=== PATIENT | male | born 1990 | race Caucasian/White ===

== ENCOUNTER 2017-08-31 10:54 | Day surgery (SDC) | payer BC, SELFPAY ==
[2017-08-31] VITALS (7 sets, daily range): BP systolic 124–145; BP diastolic 69–88; PULSE 65–77; RESP 16–18; TEMP 36.4–36.9; O2SAT 93–99; BMI 30.2
[2017-08-31] MEDS: Cefazolin 2 GM in Syringe IV (12:47)
--- NOTE | 2017-08-31 13:00 | LES_PTH ---
PATIENT: JOSEFINA BARTLETT LOC: [facility] – [place] U#:[id number] AGE/SX: 27/M ROOM: RE08/31/[address]: Dr. Abdiel Woodward MD : 1990 BED: DIS: 08/31/2017 SPEC #: [id number] RECD: 08/31/17 14:46 STATUS: COOKIE GARY #: [id number] NEW: 08/31/17 13:[address]: Abdiel Woodward DEPT: SURGICAL PATHOLOGY RECD BY: Dariusz Ortega ENTERED: 08/31/17 14:53 SP TYPE: Lesion OTHR DR: Dr. Miguel Medeiros MD Tissues: A - Skin of forearm, NOS B - Skin of back, NOS C - Skin of leg, NOS D - Skin of back, NOS E - Skin of back, NOS Procedures: Surgery Specimen Level IV HEADER OPERATION: Excision, subcutaneous mass, right forearm, left lower back x2, right lower back PRE-OP DIAGNOSIS: Mass right forearm; two masses left lower back; mass right lower back; mass left posterior thigh TISSUE SUBMITTED: A ? Subcutaneous mass right forearm, B - Subcutaneous mass right lower back, C - Subcutaneous mass left posterior thigh, D - Subcutaneous mass left posterior/medial back, E - Subcutaneous mass left lateral posterior back MICROSCOPIC DIAGNOSIS A. Subcutaneous mass, right forearm, excision: Angiolipoma. B. Subcutaneous mass, right lower back, excision: Fibrolipoma. C. Subcutaneous mass, left posterior thigh, excision: Angiolipoma. D. Subcutaneous mass, left posterior back, medial, excision: Angiolipoma. E. Subcutaneous mass, left lateral posterior back, excision: Angiolipoma. SJ:caitlyn 09/01/17 MICROSCOPIC DESCRIPTION Slides are reviewed. GROSS DESCRIPTION A - Received in fixative is one container labeled with the patient's name and designated subcutaneous mass right forearm. The specimen consists of an irregular fragment of yellow fatty tissue measuring 4 x 3 x 1 cm. Serial sectioning reveal homogenous yellow cut surfaces without areas of cyst formation, necrosis or hemorrhage. Cigar Packer And Shader sections are submitted in two cassettes. B - Received in fixative is one container labeled with the patient's name and designated subcutaneous mass right lower back. The specimen consists of a piece of yellow adipose tissue measuring 1.5 x 1 x 0.5 cm. The specimen is bisected and totally submitted in one cassette. C - Received in fixative is one container labeled with the patient's name and designated subcutaneous mass left posterior thigh. The specimen consists of a discoid fragment of yellow fatty tissue measuring 1.5 x 1.3 x 0.3 cm. The specimen is totally submitted in one cassette. D - Received in fixative is one container labeled with the patient's name and designated subcutaneous mass left posterior back, medial. The specimen consists of a discoid fragment of yellow fatty tissue measuring 2.2 x 1 x 0.7 cm. The specimen is bisected and totally submitted in one cassette. E - Received in fixative is one container labeled with the patient's name and designated subcutaneous mass left lateral posterior back. The specimen consists of a discoid fragment of yellow fatty tissue measuring 1.5 x 1 x 0.9 cm. The specimen is bisected and totally submitted in one cassette. / AM:caitlyn 08/31/17 TC:1 CPT: 55394 x5
[2017-08-31] MEDS: Bupivacaine 0.25% 30 ML Vial (13:30)
--- NOTE | 2017-08-31 13:52 | OP.PCM_ITS ---
Problem List (1) Mass of subcutaneous tissue of back Status: Acute Report of Operation Date of Procedure: 08/31/17 Pre-Operative Diagnosis: 1. Subcutaneous mass of back ?3,. 2. Subcutaneous mass of right forearm. 3. Subcutaneous mass of left lateral thigh Post-Operative Diagnosis: Same Surgery/Procedure Performed:: 1. Excisional biopsy of right forearm mass. 2. Excisional biopsy of right flank mass. 3. Excisional biopsy of left lower back mass ?2. 4. Excisional biopsy of left posterior thigh mass Specimen's removed: 1. Right forearm mass. 2. Right flank/lower back mass. 3. Left lateral lower back mass. 4. Left medial lower back mass. 5. Left posterior thigh mass Description of Procedure: The patient was brought back to the operating room and general anesthesia was induced. The patient was then placed in the prone position. The patient's right forearm and right flank were prepped and draped in usual sterile fashion. Next Marcaine was injected under the skin. An incision was made in the forearm and deepened to the subcutaneous fatty mass which was dissected free and excised with electrocautery. The cavity was then irrigated and closed with an interrupted 3-0 Vicryl suture and running 4-0 Monocryl suture. Steri-Strips and bandages were then applied. Attention was then paid to the right flank mass. It was removed in the same fashion and closed in the same fashion. The left lower back was then prepped and draped in usual sterile fashion. These areas were injected with Marcaine. An incision was made over the lateral back mass and deepened to the mass using electrocautery. The mass was dissected free using electrocautery. Electrocautery was used to obtain hemostasis in the cavity and it was irrigated out. Next the mass was closed with a interrupted 3-0 Vicryl suture and a running 4-0 Monocryl suture as well as Steri-Strips and bandage. The left lower back medial mass was removed in the same fashion. Attention was then paid to the left posterior thigh mass. This was prepped and draped in usual sterile fashion. Marcaine anesthesia was used to inject the area. An incision was made and then it was deepened to the mass with electrocautery. The mass was dissected free and removed and hemostasis was obtained with electrocautery. The cavity was irrigated and closed with an interrupted 3-0 Vicryl suture in a running 4-0 Monocryl suture as well as Steri- Strips and bandage. The patient was then awoken and taken to PACU in stable condition. The patient tolerated the procedure well.
--- NOTE | 2017-08-31 13:54 | PCM.DC.GS ---
Discharge Diet: Light diet - advance as tolerated Discharge Activity: May Not Drive - No driving for 1 week or while taking narcotic pain meds. May shower in (days): 1 Call your doctor if your incision/area has: Continuous Slow Oozing, Sudden Increased Bleeding, Increased Pain/ Swelling, Increased Redness, Foul Smelling Discharge, Swelling at the incision site Call your doctor if you observe: Fever of 101 or Higher Suture Line Care: Avoid Pulling/Pushing, Avoid Pinching/Bending Change Dressing in (Days):: 2 - Leave steri-strips in place for 1 week. Allergies/Adverse Reactions: Allergies Sulfa (Sulfonamide Antibiotics) Allergy (Verified 08/24/17 08:50) Rash Medications to take at Discharge Oxycodone HCl/Acetaminophen [Percocet 5/325] 1 - 2 tablet PO Q4H PRN PRN #10 tablet 08/31/17 The following prescriptions were given: Oxycodone HCl/Acetaminophen [Percocet 5/325] 1 - 2 tablet PO Q4H PRN PRN #10 tablet PRN Reason: Pain Primary Care Physician: Miguel Medeiros [Primary Care Provider] - Please Follow Up With: Abdiel Woodward MD When: call tomorrow to make 2 week follow up appt [phone]
[2017-08-31] MEDS: DiphenhydrAMINE 50 MG/ML Syringe 25 MG IV (16:00)
[2017-08-31] MEDS: Metoclopramide 10 MG/2 ML Vial IV (16:00)
[2017-08-31] MEDS: Ketorolac 30 MG/ML Syringe IV (16:00)
== END 2017-08-31 17:35 | disposition home or self-care (01) ==
LOC: SDC 10:56 → AC 10:57
PROVIDERS: Family Provider Family Medicine; PCP Family Medicine; Visit Provider Surgery
PROC: (CPT 11402; principal; 2017-08-31 12:45)
DX: D17.21 Benign lipomatous neoplasm of skin and subcutaneous tissue of right arm (principal); D17.1 Benign lipomatous neoplasm of skin and subcutaneous tissue of trunk; D17.24 Benign lipomatous neoplasm of skin and subcutaneous tissue of left leg
CPT/HCPCS: 00300; 11402 ×3; 11403; 11404; 88305; J7120; J2405

== ENCOUNTER 2018-02-20 18:56 | Emergency (ER) | payer BC, SELFPAY ==
[2018-02-20 18:57] VITALS: BP 150/94; PULSE 101; RESP 24; TEMP 36.6; O2SAT 97; BMI 32.1
--- NOTE | 2018-02-20 21:23 | ED.DCSUM_ITS ---
- ER Visit Summary Date of Service: 02/20/18 Chief Complaint: Right shoulder laceration History of Present Illness: The patient is a 27 M [place] with right shoulder laceration he got caught into a piece of metal. Physical Examination: 3 cm laceration dorsum of the shoulder full range of motion of the shoulder Test Results: [] Emergency Department Course and Treatment: Patient was sutured with 4-0 nylon sutures tolerated procedure well tetanus administered. Treatment Plan: [] Disposition: Discharge stable Impression: Right shoulder lacerations 3 cm This note was generated with [employer] dictation software. It may contain incorrect words, spelling, and punctuation that were not noted in review of the chart prior to signing ED Disposition - Plan for ED Patient: Disposition: Home or Assisted Living Chief Complaint: Laceration Instructions: ED Laceration All Referrals: Miguel Medeiros [Primary Care Provider] - 10 Day for suture removal
[2018-02-20 21:26] VITALS: BP 161/76; PULSE 74; RESP 16; O2SAT 99
[2018-02-20] MEDS: Diphth,Pertuss(Acell),Tet Vac 0.5 ML Vial IM (21:43)
[2018-02-20 22:10] VITALS: PULSE 78; RESP 16; O2SAT 98
== END 2018-02-20 22:11 | disposition home or self-care (01) ==
LOC: ED 21:51
PROVIDERS: Emergency Provider Emergency Medicine; Family Provider Family Medicine; PCP Family Medicine
DX: S41.011A Laceration without foreign body of right shoulder, initial encounter (principal); W45.8XXA Other foreign body or object entering through skin, initial encounter; Y93.9 Activity, unspecified; Y92.9 Unspecified place or not applicable; Y99.9 Unspecified external cause status; Z23 Encounter for immunization
CPT/HCPCS: 12002; 90715; 99283

== ENCOUNTER 2020-07-05 17:46 | Emergency (ER) | payer BC, SELFPAY ==
[2020-07-05 17:47] VITALS: BP 127/63; PULSE 104; RESP 20; TEMP 36.8; O2SAT 96; BMI 30.7
--- NOTE | 2020-07-05 18:30 | EKG12_ITS ---
Test Reason : DYSRYTHMIA Blood Pressure : / mmHG Vent. Rate : 085 BPM Atrial Rate : 085 BPM P-R Int : 142 ms QRS Dur : 090 ms QT Int : 334 ms P-R-T Axes : 006 074 -16 degrees QTc Int : 397 ms Normal sinus rhythm Cannot rule out Inferior infarct , age undetermined Abnormal ECG Confirmed by SUSHANT OLSON, SORAYA ([id number]), story editor DILIA ESPARZA ([id number]) on 07/07/2020 2:26:26 PM Referred By: ROSA Confirmed By:SORAYA CANCHOLA MD
--- NOTE | 2020-07-05 18:45 | ED.VIS.FLU ---
History of Present Illness Chief Complaint: General Illness Informant: Patient Known exposure: No Onset: Days Context: Gradual Onset Timing: Continuous Worsened by: Coughing Relieved by: Nothing Associated Symptoms: Fever, Sore throat Chest Pain: None Narrative: Patient is a 30-year-old male without any significant past medical history presenting with 1 day of fever, headache, shortness of breath and nausea/vomiting. He also states he has had malaise for the past couple days. He denies any sick contacts. He states his and 1-year-old child at home are asymptomatic. Patient had Tylenol around noon today. He states he feels like he is going to pass out. He denies any associated neck pain. He denies any rash. States he is hands and feet feel numb. He denies any weakness however. He states he gets a bad febrile illness about once a year which tends to be strep. Denies any associated vision changes. He denies any loss of sense of smell or taste. He denies any change in his bowel habits. He denies any other complaints at this time. On repeat evaluation patient states he is actually been feeling unwell for about a week but is been controlling symptoms with Tylenol. His symptoms are just not been as severe until today. He notes that his 1-year-old at home did have runny nose and was tested for Covid a couple days ago but this was negative. Patient was sent home from work a week ago is not been back since because of his symptoms. Past Medical History - Allergies and Home Meds Allergies/Adverse Reactions: Allergies Sulfa (Sulfonamide Antibiotics) Allergy (Verified 02/20/18 18:58) Rash Primary Care Physician: Miguel Medeiros MD [Primary Care Provider] - Past Medical History: None Surgical History: no surgical history Lives: Spouse/ Significant Other Smoking Status: Never smoker Review of Systems General: Reports: Chills, Fever, Malaise. Denies: Sweats ENT: Reports: Sore throat. Denies: Bilateral ear pain, Rhinorrhea Cardiovascular: Denies: Chest pain, Palpitations Respiratory: Reports: Cough. Denies: Dyspnea, Sputum, Dyspnea on exertion Gastrointestinal: Reports: Nausea, Vomiting. Denies: Abdominal pain, Diarrhea, Melena, Hematochezia Genitourinary: Denies: Dysuria, Hematuria, Frequency Musculoskeletal: Reports: Myalgias, Neck pain Skin: Denies: Rash Neurological: Reports: Headache, Parasthesia - Hands and feet. Denies: Weakness, Numbness Physical Exam Vital Signs/Narrative: Vital Signs Temp Pulse Resp BP Pulse Ox 07/05/20 17:47 98.2 F 104 H 20 H 127/63 H 96 Inital Vital Signs reviewed: Yes General: Well nourished, Well developed, - - Febrile appearing Head: Normocephalic, Atraumatic Eyes: Perrl, EOMI ENT: Moist mucous membranes, TM's clear, - - No significant erythema or edema of the tonsils. Negative for: Rhinorrhea Neck: Supple, Nontender, - - No pain with neck flexion or extension. Negative for: No lymphadenopathy Cardiovascular: Regular rhythm, No murmurs, Tachycardia Respiratory: No distress, CTA bilaterally, No Stridor. Negative for: Wheezing, Diminished Abdomen: Soft, Nontender, Nondistended, Normal bowel sounds. Negative for: Guarding, Rebound tenderness Back: Nontender, Normal Inspection. Negative for: CVA tenderness Extremities: Nontender, No edema Skin: Normal color, No rash Neurological: Alert, Oriented x3, Cranial nerves II-XII grossly intact, Normal Strength, Normal Sensation - Sensation intact to light touch of all extremities, - - Normal reflexes in patellar tendon bilaterally. No clonus of the ankles laterally. Normal Babinski bilaterally. 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 Negative for: Weakness Psychological: Normal affect Diagnostic/Tx/Re-eval Chest X-Ray - ED: 1 View, Read by ED Physician, Read by Radiologist, No Acute Disease Clinical Impression(s) from Imaging Studies Chest X-Ray 07/05/20 19:04 IMPRESSION: Normal x-ray examination of the chest. Electronically Signed: Ronal Pinon DO at 19:20 EST Tel , Service support , Laboratory Data 07/05/20 07/05/20 07/05/20 18:40 18:40 18:40 WBC 7.0 RBC 4.77 Hgb 14.1 Hct 42.2 MCV 88.5 MCH 29.6 MCHC 33.4 RDW Std Deviation 38.3 RDW Coeff of Shar 11.9 Plt Count 183 MPV 10.3 Immature Gran % (Auto) 0.400 Neut % (Auto) 49.3 Lymph % (Auto) 38.5 [place] % (Auto) 7.2 Eos % (Auto) 3.6 Baso % (Auto) 1.0 Absolute Neuts (auto) 3.5 Absolute Lymphs (auto) 2.69 Nucleated RBC % 0 PT 13.7 INR 1.1 Sodium 139 Potassium 3.6 Chloride 106 Carbon Dioxide 26.0 Anion Gap 7 BUN 19 H Creatinine 1.12 Estim Creat Clear Calc 105.85 Est GFR (MDRD) Af Amer 99 Est GFR (MDRD) Non-Af 82 BUN/Creatinine Ratio 17.0 Glucose 89 Lactic Acid Calcium 9.0 Total Bilirubin 0.60 AST 183 H ALT 258 H Alkaline Phosphatase 115 Troponin I < 0.015 Total Protein 7.8 Albumin 4.0 Globulin 3.8 Albumin/Globulin Ratio 1.1 Lipase 59 L Urine Color Urine Clarity Urine pH Ur Specific [place] Urine Protein Urine Glucose (UA) Urine Ketones Urine Occult Blood Urine Nitrite Urine Bilirubin Urine Urobilinogen Ur Leukocyte Esterase Urine RBC Urine WBC Ur Squamous Epith Cells Urine Bacteria Urine Mucus Monoscreen 07/05/20 07/05/20 07/05/20 18:40 18:40 19:40 WBC RBC Hgb Hct MCV MCH MCHC RDW Std Deviation RDW Coeff of Shar Plt Count MPV Immature Gran % (Auto) Neut % (Auto) Lymph % (Auto) [place] % (Auto) Eos % (Auto) Baso % (Auto) Absolute Neuts (auto) Absolute Lymphs (auto) Nucleated RBC % PT INR Sodium Potassium Chloride Carbon Dioxide Anion Gap BUN Creatinine Estim Creat Clear Calc Est GFR (MDRD) Af Amer Est GFR (MDRD) Non-Af BUN/Creatinine Ratio Glucose Lactic Acid 0.8 Calcium Total Bilirubin AST ALT Alkaline Phosphatase Troponin I Total Protein Albumin Globulin Albumin/Globulin Ratio Lipase Urine Color Yellow Urine Clarity Sl. Cloudy Urine pH 5.0 Ur Specific [place] 1.020 Urine Protein Negative Urine Glucose (UA) Normal Urine Ketones 50 H Urine Occult Blood 10 H Urine Nitrite Negative Urine Bilirubin Negative Urine Urobilinogen Normal Ur Leukocyte Esterase Negative Urine RBC 0-5 SEEN Urine WBC 0 SEEN Ur Squamous Epith Cells 0-5 SEEN Urine Bacteria 0 SEEN Urine Mucus 0 SEEN Monoscreen Negative - Rhythm Strip Rhythm Strip: Sinus Rhythm Rate: 85 Ectopy: None - EKG Initial EKG Interpretation: Sinus Rhythm, - - Sinus rhythm at a rate of 85 Normal axis Normal intervals Nonspecific T wave inversion in lead IIIand AvF - Medical Decision Making Patient is evaluated for fever, chills, myalgias, shortness of breath, nausea and headache. He has had fever and generalized malaise for the past week but his symptoms have never been this severe as they are today. He feels lightheaded and feels like he might pass out. Patient is hemodynamically stable. He is mildly tachycardic and I suspect he is febrile despite low-grade temps in the ER. He is complaining of weakness of his legs and numbness or seizures of his hands and feet but has a normal neurologic exam. He is not having nuchal rigidity and has easy range of motion of his neck. I have a low suspicion for meningitis. Given the amount of symptoms he is having I did check blood work we will do chest x-ray and urine. CBC is normal. BMP CMP is remarkable for mild transaminitis. Patient states he does not drink alcohol in the past few weeks and I suspect it might be viral. I did add on a Monospot which is negative. Strep swab is negative. Urinalysis is consistent with some mild dehydration. Chest x-ray does not show any acute process. Patient has clear breath sounds and not hypoxic in the ER. He is initially treated with Toradol and IV fluids. He does have improvement of the symptoms but does complain to complain of a throbbing headache. On repeat evaluation he does not appear clinically much improved and continues to have a normal neurologic exam. He does not have any weakness and has normal reflexes of the lower extremities and have a low suspicion for Guillain-Jimenez? syndrome at this time. I do not think an LP is indicated at this time. Patient is not symptoms for a week with a normal neurologic exam. Patient will be treated with Reglan and Benadryl prior to discharge for headache control. Covid swab is pending. He is counseled on return precautions. He is encouraged to alternate Tylenol ibuprofen. He is discharged home with a course of Zofran. ED Disposition - Plan for ED Patient: Disposition: Home or Assisted Living Diagnosis: Viral syndrome, Suspected COVID-19 virus infection, Transaminitis Instructions: ED Viral Syndrome Prescriptions: Ondansetron [Zofran Odt] 4 mg PO Q8H PRN PRN #10 tab PRN Reason: Nausea Prescription Printed Referrals: Miguel Medeiros MD [Primary Care Provider] - Additional Instructions: I suspect you have Covid infection or another viral infection was causing your symptoms. You been tested today but will take a couple days for the results to come back. You do have some mild elevation of your liver enzymes which can be seen in viral infections. Your test for mono nucleus this was negative. Your strep test was negative. I think your body still needs time to let this run its course however please return to the emergency room if you have worsening symptoms, develop shortness of breath/trouble breathing or signs of dehydration. If you develop significant weakness of her lower legs or have a hard time walking please return to the emergency room. Alternate Tylenol and ibuprofen regularly at home for fever control.
[2020-07-05] MEDS: 0.9% Normal Saline 1,000 ML 1000 ML IV (18:46)
[2020-07-05] MEDS: Ondansetron 4 MG/2 ML Vial IV (18:46)
[2020-07-05] MEDS: Ketorolac 15 MG/ML Vial IV (18:46)
--- NOTE | 2020-07-05 19:04 | RAD_ITS ---
STUDY: X-RAY CHEST REASON FOR EXAM: Male, 30 years old. FEVER, LONGO, UNABLE TO FEEL FEET AND ARMS, COUGH, SOB TECHNIQUE: Single AP portable view of the chest. COMPARISON: None. FINDINGS: The lungs are clear and expanded. There is no demonstrated pleural abnormality. Normal size heart. Normal mediastinum and elvira. Normal visualized pulmonary arteries. Normal visualized aortic arch and descending thoracic aorta. Normal visualized thoracic spine. Normal visualized ribs, clavicles, and shoulders. There is no demonstrated abnormality of the visualized soft tissue structures of the upper abdomen. RAD/Chest 1 View (Portable) IMPRESSION: Normal x-ray examination of the chest. Electronically Signed: Ronal Pinon DO at 19:20 EST Tel , Service support ,
[2020-07-05 19:14] LABS: Absolute Lymphocyte Count 2.69 X10^3/uL (0.83-4.51); Absolute Neutrophil Count 3.5 X10^3/uL (2.0-7.7); Basophil# 0.07 X10^3/uL; Eosinophil# 0.25 X10^3/uL; Eosinophils% 3.6 % (0-5); Hematocrit 42.2 % (40-54); Hemoglobin 14.1 g/dL (13.0-16.5); International Normalized Ratio 1.1; Lymphocyte # 2.69 X10^3/ul (4.0); Lymphocyte % 38.5 % (19-41); Mean Corp Hgb Conc 33.4 g/dL (32-36); Mean Corpuscular Hgb 29.6 pg (27.0-32.0); Mean Corpuscular Volume 88.5 fL (80-94); Mean Platelet Vol. 10.3 fl (6.2-12.0); Monocyte% 7.2 % (0-10); NRBC Flagged by Analyzer 0 % (0-5); Neutrophil # 3.45 X10^3/uL (2.7-7.7); Neutrophil % 49.3 % (47-70); Platelet Count 183 K/mm3 (150-450); Prothrombin Time (Protime)PT. 13.7 SECONDS (11.7-14.9); RBC Distribution Width CV 11.9 % (11.6-14.6); RBC Distribution Width SD 38.3 fl (35.1-43.9); Red Blood Count 4.77 M/mm3 (4.6-6.2)
[2020-07-05 19:50] LABS: Lactic Acid 0.8 mmol/L (0.4-1.9)
[2020-07-05 19:53] LABS: ALB/GLOB Ratio 1.1 RATIO (0.9-2.4); AST(SGOT) 183 U/L (15-37); Alanine Aminotransfer ALT/SGPT 258 U/L (16-61); Alkaline Phosphatase 115 U/L (45-117); Anion Gap 7 (5-15); BUN 19 mg/dL (7-18); Chloride 106 mmol/L (98-107); Creatinine, Serum 1.12 mg/dL (0.70-1.30); EST Glomerular Filtration Rate 82 mL/min (>60); Est Glom Filt Rate - Afr Amer 99 mL/min (>60); Estimated Creatinine Clearance 105.85 ml/min; Globulin 3.8 g/dL (2.2-4.2); Glucose 89 mg/dL (74-106); Lipase 59 U/L (73-393); Potassium 3.6 mmol/L (3.5-5.1); Protein, Total 7.8 g/dL (6.4-8.2); Sodium Level 139 mmol/L (136-145)
[2020-07-05 19:53] LABS: Bacteria 0 SEEN /hpf (None Seen); Mucous, Urine 0 SEEN /hpf (<or=2+); White Blood Cells 0 SEEN /hpf (0-5)
[2020-07-05 20:08] VITALS: BP 132/77; PULSE 89; RESP 18; O2SAT 96
[2020-07-05 20:18] LABS: Color, Urine Yellow (Yellow); Glucose, Dipstick Normal (Normal); Ketone-Dipstick 50 mg/dl (Negative); Leukocyte Esterase-Dipstick Negative /ul (Negative); Nitrite-Dipstick Negative (Negative); Occult Blood-Urine 10 /ul (Negative); Protein-Dipstick Negative (Negative); Urine Bilirubin Dipstick Negative (Negative); Urine Clarity Sl. Cloudy (Clear); Urine Urobilinogen Normal (Normal)
[2020-07-05 20:20] VITALS: BP 123/82; BP 125/78; BP 133/70; PULSE 100; PULSE 83; PULSE 98
[2020-07-05 20:25] VITALS: BP 123/82; PULSE 88; RESP 18; TEMP 37.2; O2SAT 95
[2020-07-05 20:30] LABS: Internal QC Validated? YES +Cl - CLEAR BKGD; Monotest Negative (Negative)
[2020-07-05 20:31] LABS: Red Blood Cells-Urine 0-5 SEEN /hpf (0-5); Squamous Epithelial Cells - UA 0-5 SEEN /hpf (0-5)
[2020-07-05] MEDS: DiphenhydrAMINE 50 MG/ML Syringe 25 MG IV (21:38)
[2020-07-05] MEDS: Metoclopramide 10 MG/2 ML Vial 5 MG IV (21:38)
[2020-07-05 21:42] VITALS: BP 134/73; PULSE 71; RESP 24; O2SAT 98
== END 2020-07-05 21:58 | disposition home or self-care (01) ==
PROVIDERS: Emergency Provider Emergency Medicine; PCP Family Medicine
DX: B34.9 Viral infection, unspecified (principal); R74.01 Elevation of levels of liver transaminase levels; Z88.2 Allergy status to sulfonamides
CPT/HCPCS: 71045; 80053; 81001; 83605; 83690; 84484; 85025; 85610; 86308; 87635; 87880; 93005; 96361; 96374; 96375; 99285; J7030; A4216; J2405; U0003

== ENCOUNTER 2023-02-01 17:49 | Emergency (ER) | payer OTHER, SELFPAY ==
[2023-02-01 17:51] VITALS: BP 136/103; PULSE 108; RESP 18; TEMP 36.3; O2SAT 98; BMI 30.3
[2023-02-01 19:01] LABS: Absolute Neutrophil Count 8.4 X10^3/uL (2.0-7.7); Basophil# 0.08 X10^3/uL; Basophil% 0.6 % (0-1); Eosinophil# 0.14 X10^3/uL; Eosinophils% 1.1 % (0-5); Hemoglobin 16.4 g/dL (13.0-16.5); Lymphocyte % 27.5 % (19-41); Mean Corp Hgb Conc 34.2 g/dL (32-36); Mean Corpuscular Hgb 29.2 pg (27.0-32.0); Mean Corpuscular Volume 85.4 fL (80-94); Mean Platelet Vol. 9.9 fl (6.2-12.0); Monocyte# 0.77 X10^3/uL; Monocyte% 5.9 % (0-10); NRBC Flagged by Analyzer 0 % (0-5); Neutrophil # 8.42 X10^3/uL (2.7-7.7); Neutrophil % 64.4 % (47-70); Platelet Count 287 K/mm3 (150-450); RBC Distribution Width CV 12.1 % (11.6-14.6); RBC Distribution Width SD 37.8 fl (35.1-43.9); Red Blood Count 5.62 M/mm3 (4.6-6.2); White Blood Count 13.1 K/mm3 (4.4-11.0)
[2023-02-01 19:20] LABS: ALB/GLOB Ratio 0.9 RATIO (0.9-2.4); AST(SGOT) 17 U/L (15-37); Alanine Aminotransfer ALT/SGPT 30 U/L (16-61); Albumin, Serum 4.6 g/dL (3.2-5.0); Alkaline Phosphatase 90 U/L (45-117); Anion Gap 7 (5-15); BUN 14 mg/dL (7-18); BUN/Creat Ratio 12.1 RATIO (10-20); Chloride 100 mmol/L (98-107); Creatinine, Serum 1.16 mg/dL (0.70-1.30); EST Glomerular Filtration Rate 77 mL/min (>60); Est Glom Filt Rate - Afr Amer 93 mL/min (>60); Estimated Creatinine Clearance 100.34 ml/min; Globulin 4.9 g/dL (2.2-4.2); Glucose 104 mg/dL (74-106); Lipase 23 U/L (13-75); Potassium 4.2 mmol/L (3.5-5.1); Protein, Total 9.5 g/dL (6.4-8.2); Sodium Level 132 mmol/L (136-145)
[2023-02-01] MEDS: Ondansetron 4 MG/2 ML Vial IV (19:43)
[2023-02-01] MEDS: Mag Hydrox/Al Hydrox/Simeth 30 ML UDC PO (19:45)
[2023-02-01 19:52] LABS: Squamous Epithelial Cells - UA 0 SEEN /hpf (0-5)
[2023-02-01 19:53] LABS: Color, Urine Yellow (Yellow); Glucose, Dipstick Normal (Normal); Leukocyte Esterase-Dipstick Negative /ul (Negative); Nitrite-Dipstick Negative (Negative); Occult Blood-Urine 25 /ul (Negative); Protein-Dipstick 15 mg/dl (Negative); Urine Bilirubin Dipstick Negative (Negative); Urine Clarity Clear (Clear); Urine Urobilinogen Normal (Normal)
[2023-02-01 20:12] LABS: Ketone-Dipstick 150 mg/dl (Negative)
[2023-02-01 20:14] LABS: Bacteria RARE /hpf (None Seen); Mucous, Urine 1+ /hpf (<or=2+); Red Blood Cells-Urine 0-5 SEEN /hpf (0-5); White Blood Cells 0-5 SEEN /hpf (0-5)
--- NOTE | 2023-02-01 20:16 | EDS_ITS ---
HPI HPI - GI History of Present Illness Chief Complaint: Abd Pain Narrative Narrative: 32-year-old male presenting with nausea and vomiting. He states that his had at first. She developed abdominal pain and then diarrhea as well as nausea and vomiting. He states has been like this for couple of days where he had the epigastric pain and is not able to hold down food and fluids very well. He does state that now he is constipated and has not had a bowel movement in a day and a half or so. He did take a laxative yesterday but this did not help. He has not had a fever or chills. Denies any history of abdominal surgery. Denies urinary complaints. PFSH PFS Medical History Abnormal colonoscopy Home Medications ondansetron 4 mg disintegrating tablet 4 mg PO Q8H PRN PRN Nausea #10 tabs 07/05/20 [Rx Last Taken Unknown] famotidine 20 mg tablet (Pepcid AC) 20 mg PO BID PRN epigastric pain #14 tabs 02/01/23 [Rx Last Taken Unknown] ondansetron 4 mg disintegrating tablet 4 mg PO Q8H PRN PRN Nausea #14 tabs 02/01/23 [Rx Last Taken Unknown] Allergy/AdvReac Type Severity Reaction Status Date / Time Sulfa (Sulfonamide Allergy Rash Verified 02/01/23 17:52 Antibiotics) Family History Mother No problems noted. Surgical History History of surgery on arm Status post excision of lipoma Social History Smoking Status: Never smoker alcohol intake: current alcohol intake frequency: a few times a month EXAM Physical Exam Const Vital Signs: 02/01/23 17:51 02/01/23 22:37 Temperature 97.3 F L Temperature Source Temporal Pulse Rate 108 H 71 Respiratory Rate 18 16 Blood Pressure 136/103 H 137/91 H Blood Pressure Mean 114 106 Pulse Ox 98 100 Oxygen Delivery Method Room Air MDM MDM MDM Narrative Medical decision making narrative: Patient presenting epigastric pain he states been ongoing but also states that his had similar symptoms and she just self resolved. He continues to have epigastric pain. He is having nausea and vomiting as well. Physical exam remar kable for epigastric tenderness. Negative Becerril sign to have a low suspicion for cholelithiasis or acute cholecystitis. Differential diagnosis includes gastritis, pancreatitis, gastric ulcer, dehydration, electrolyte abnormalities, anemia, GI bleed. CBC obtained to assess white blood cell count, hemoglobin, platelets, differential. CMP to assess liver function, renal function, electrolytes. Lipase to assess for pancreatitis. Patient given Zofran and a GI cocktail. He continued to have pain and he was given a dose of morphine. At this point he was given a liter of normal saline. I reevaluated him and he was still having pain so at this point we determined we would get a CT scan of the abdomen pelvis which shows nonspecific findings consistent with a gastroenteritis. CBC shows a mild leukocytosis at 13.1. No left shift. Hemoglobin hematocrit stable. Platelets normal. Renal function electrolytes within normal limits. LFTs are normal. Lipase negative. Urinalysis shows 150 ketones. Doing better on reevaluation at 1150. I am going to provide him with a prescription for Pepcid and Zofran for home. He is to follow-up with his primary care physician and return precautions were discussed. Impression: 1. Nausea/vomiting 2. Abdominal pain 3. Diarrhea 4. Lab Data Labs: Laboratory Results - last 24 hr 02/01/23 02/01/23 02/01/23 18:53 18:53 19:40 WBC 13.1 H RBC 5.62 Hgb 16.4 Hct 48.0 MCV 85.4 MCH 29.2 MCHC 34.2 RDW Std Deviation 37.8 RDW Coeff of Shar 12.1 Plt Count 287 MPV 9.9 Immature Gran % (Auto) 0.500 Neut % (Auto) 64.4 Lymph % (Auto) 27.5 [place] % (Auto) 5.9 Eos % (Auto) 1.1 Baso % (Auto) 0.6 Absolute Neuts (auto) 8.4 H Absolute Lymphs (auto) 3.60 Nucleated RBC % 0 Sodium 132 L Potassium 4.2 Chloride 100 Carbon Dioxide 25.0 Anion Gap 7 BUN 14 Creatinine 1.16 Estim Creat Clear Calc 100.34 Est GFR (MDRD) Af Amer 93 Est GFR (MDRD) Non-Af 77 BUN/Creatinine Ratio 12.1 Glucose 104 Calcium 10.0 Total Bilirubin 0.70 AST 17 ALT 30 Alkaline Phosphatase 90 Total Protein 9.5 H Albumin 4.6 Globulin 4.9 H Albumin/Globulin Ratio 0.9 Lipase 23 Urine Color Yellow Urine Clarity Clear Urine pH 6.0 Ur Specific [place] 1.020 Urine Protein 15 H Urine Glucose (UA) Normal Urine Ketones 150 A* Urine Occult Blood 25 H Urine Nitrite Negative Urine Bilirubin Negative Urine Urobilinogen Normal Ur Leukocyte Esterase Negative Urine RBC 0-5 SEEN Urine WBC 0-5 SEEN Ur Squamous Epith Cells 0 SEEN Urine Bacteria RARE Urine Mucus 1+ Radiography Diagnostic Testing: Clinical Impression(s) from Imaging Studies Abdomen/Pelvis CT 02/01/23 21:45 IMPRESSION: Findings which may be consistent with mild nonspecific gastroenteritis. No evidence for small bowel obstruction or other acute abnormality. Electronically Signed: Jonathan Lisa MD at 22:40 EDT Reading Location ID and State: [address] [place] [address] , Service support , Discharge Plan Triage Chief Complaint: Abd Pain ED Provider: Eulalio Slade Dx/Rx/DC Orders Instructions: ED Gastroenteritis, Viral (Adult) Prescriptions: New ondansetron 4 mg tablet,disintegrating 4 mg PO Q8H PRN PRN (Reason: Nausea) Qty: 14 0RF famotidine [Pepcid AC] 20 mg tablet 20 mg PO BID PRN (Reason: epigastric pain) Qty: 14 0RF No Action ondansetron 4 MG tablet 4 mg PO Q8H PRN PRN (Reason: Nausea) Qty: 10 0RF Stand Alone Forms: ED Work / School Excuse Primary Care Provider: Miguel Medeiros Referrals: Miguel Medeiros MD [Primary Care Provider] - Disposition Disposition: Home, Self Care
[2023-02-01] MEDS: Morphine 4 MG/ML Syringe IV ×2 (20:28→22:32)
--- NOTE | 2023-02-01 21:45 | CT_ITS ---
STUDY: CT ABDOMEN AND PELVIS WITH CONTRAST REASON FOR EXAM: Male, 32 years old. abdominal pain RADIATION DOSAGE (If Supplied By Facility): CTDIvol = ( 13.65 ) mGy, DLP = ( 1138.04 ) mGycm TECHNIQUE: Transaxial images were obtained from the dome of the diaphragm to the symphysis pubis without oral contrast. IV 100mL Isovue-[id number] was administered. Sagittal and coronal images were reconstructed. Individualized dose optimization techniques were used for this CT. COMPARISON: June 13, 2013 FINDINGS: The visualized lung bases are unremarkable. The visualized portions of the heart are within normal limits. Normal liver. Normal gallbladder and extrahepatic biliary system. Normal spleen. Normal pancreas. Normal bilateral adrenal glands. Normal right kidney. Normal left kidney. Mild thickening of the rugal folds and mild thickening of the [place] of the gastroduodenal junction consistent with nonspecific gastroduodenitis.. No evidence for small bowel obstruction however there are several loops of small bowel in the upper abdomen demonstrating mild thickening of the folds consistent with nonspecific enteritis. Minor diverticular changes of the sigmoid colon without evidence for acute diverticulitis. No evidence for acute appendicitis Normal abdominal aorta. Normal inferior vena cava. Normal retroperitoneum. Normal urinary bladder. [Bilateral fat-containing inguinal hernias.. Normal osseous structures. CT/Abdomen/Pelvis W IV Cont ONLY IMPRESSION: Findings which may be consistent with mild nonspecific gastroenteritis. No evidence for small bowel obstruction or other acute abnormality. Electronically Signed: Jonathan Lisa MD at 22:40 EDT ,
[2023-02-01] MEDS: 0.9% Normal Saline 1,000 ML 999 ML IV (22:32)
[2023-02-01] MEDS: Ketorolac 15 MG/ML Vial IV (22:32)
[2023-02-01 22:37] VITALS: BP 137/91; PULSE 71; RESP 16; O2SAT 100
== END 2023-02-02 00:30 | disposition home or self-care (01) ==
PROVIDERS: Emergency Provider Student in an Organized Health Care Education/Training Program; PCP Family Medicine; Visit Provider Student in an Organized Health Care Education/Training Program
DX: R11.2 Nausea with vomiting, unspecified (principal); R19.7 Diarrhea, unspecified; R10.13 Epigastric pain
CPT/HCPCS: 74177; 80053; 81001; 83690; 85025; 96361; 96374; 96375; 96376; 99283; J7030; Q9967; A4216; J2405